=== PATIENT | female | born 1970 | race Hispanic/Latino ===

== ENCOUNTER 2021-09-04 08:51 | Day surgery (SDC) | payer SELFPAY ==
[~2021-09-04] VITALS: Ht 152.4 cm; Wt 70.3 kg
[~2021-09-04 08:51] MED LIST: LIPITOR10 M1 PO; NAPROSYN500 MG PO; OXYBUTYNIN CHLOR5 M1 PO
[2021-09-04 12:56] VITALS: BP 119/57
== END 2021-09-04 12:04 | disposition home or self-care (01) | DRG 951 ==
LOC: ENDO 08:51
PROVIDERS: ATTEND Surgery
PROC: 0DJD8ZZ Inspection of Lower Intestinal Tract, Via Natural or Artificial Opening Endoscopic (ICD-10-PCS; principal; 2021-09-04)
DX: Z12.11 Encounter for screening for malignant neoplasm of colon (principal); K57.30 Diverticulosis of large intestine without perforation or abscess without bleeding